=== PATIENT | female | born 1955 ===

== ENCOUNTER 2018-07-08 05:41 | Day surgery (SDC) | payer BC ==
--- NOTE | 2018-07-04 10:31 | Pre-op HX & Phy Repo 2 SIG ---
DATE OF ADMISSION: 07/08/2018 DATE OF SURGERY: 07/08/2018. PREOPERATIVE DIAGNOSIS: Macular hole, left eye. BRIEF NOTE: This is the first [place] admission for this patient is a very nice 62-year-old lady, who complained of blurred vision in both eyes over the last month or so. On examination, she was found to have significant vitreomacular traction on the right eye, but in addition was found to have a full-thickness macular hole on the left. Her past ocular history is negative for surgery or laser. She has only been treated in the past for dry eyes. She did have refractive laser surgery in both eyes in 1998. MEDICAL HISTORY: Remarkable for depression. She has no diabetes or hypertension. She is a former smoker. CURRENT MEDICATIONS: Include Rexulti 1 mg, Venlafaxine 225 mg, and lorazepam 0.5 mg. ALLERGIES: She has no known allergies. PHYSICAL EXAMINATION: Best vision at the time of the visit was 20/30 -1 in the right eye, 20/50 in the left with pressures of 13 and 12. The anterior segments were quiet. Fundus examination showed an impending macular hole with vitreomacular traction, centrally on the right. The periphery was without retinal tear. The left fundus showed partially resolved vitreomacular traction, but with presence of a full-thickness hole centrally as well as retinal thickening. Early nuclear cataract are seen bilaterally. General physical examination was done by the patient's nuclear medicine tech, Dr. Miguel Larkin. ASSESSMENT: Macular hole, left eye. PLAN: The plan is to perform a pars plana vitrectomy with ICG-assisted membrane peeling, possible endolaser, and gas-fluid exchange on the left. The risks and benefits of surgery were gone over with the patient with potential for infection, development of a cataract, hemorrhage, remote possibility of loss of the eye, the risk of anesthesia was discussed. The patient understands and consents to the surgery, which will be performed on Sunday. Keven Velazquez M.D. DR: ELIAS JOB#: [id number] CC:
[2018-07-08] VITALS (9 sets, daily range): BP systolic 110–129; BP diastolic 54–82
[~2018-07-08] VITALS: Ht 157.5 cm; Wt 77.1 kg
[2018-07-08] MEDS ORDERED: Pred Forte 1% Opth Susp 1ml LEFT EYE SCH (06:00)
[2018-07-08] MEDS: Cyclopentolate 1% Opth Sol 2ml LEFT EYE SCH ×3 (06:26→06:51)
[2018-07-08] MEDS: Flurbiprofen 0.03% Opth Sol 2.5ml LEFT EYE SCH ×3 (06:27→06:51)
[2018-07-08] MEDS: Vigamox Opth Soln 3ml LEFT EYE SCH ×3 (06:27→06:51)
[2018-07-08] MEDS: Phenylephrine 2.5% Op 2ml Soln LEFT EYE SCH ×3 (06:27→06:51)
[2018-07-08] MEDS ORDERED: VENLAFAXINE HC100 MG ORAL (06:48)
[2018-07-08] MEDS ORDERED: REXULTI1 MG PO (06:48)
[2018-07-08] MEDS ORDERED: LORAZEPAM0.5 MG ORAL (06:48)
[2018-07-08] MEDS ORDERED: Maxitrol Opth Oint 3.5gm ONE (06:59)
[2018-07-08] MEDS ORDERED: Kenalog-40 1ml Vial ONE (06:59)
[2018-07-08] MEDS ORDERED: Lidocaine 2% MPF 5ml Vial INJ ONE (06:59)
[2018-07-08] MEDS ORDERED: Pred Forte 1% Opth Susp 1ml ONE (06:59)
[2018-07-08] MEDS ORDERED: Dexamethasone 20mg/5ml ONE (07:00)
[2018-07-08] MEDS ORDERED: Povidone-Iodine 5% opth solution ONE (07:00)
[2018-07-08] MEDS ORDERED: BSS 15ml BTL ONE (07:00)
[2018-07-08] MEDS ORDERED: BSS 500ml btl ONE ×2 (07:00→08:04)
[2018-07-08] MEDS ORDERED: Kenalog-10 5ml Inj ONE (07:00)
[2018-07-08] MEDS ORDERED: Tetracaine 0.5% Opth 4ml Soln ONE (07:00)
[2018-07-08] MEDS ORDERED: Bupivacaine 0.75% 30ml vial INJ ONE (07:00)
[2018-07-08] MEDS ORDERED: Sodium Hyaluronate 10 mg/ml 0.85ml ONE (07:01)
[2018-07-08] MEDS ORDERED: EPINEPHrine 1mg/1ml Amp ONE ×2 (07:01→08:05)
[2018-07-08] MEDS ORDERED: Midazolam 2mg/2ml Inj ONE (07:19)
[2018-07-08] MEDS ORDERED: Propofol 200mg/20ml IV ONE (07:19)
[2018-07-08] MEDS ORDERED: Lidocaine 1% MPF 10mg/ml 5ml ONE (07:19)
[2018-07-08] MEDS ORDERED: LR 1000ml 1,000 ML IVLG SCH (07:24)
[2018-07-08] MEDS ORDERED: Meperidine 50mg/ml Inj(FOR RIGORS ONLY) IVP PRN (07:30)
[2018-07-08] MEDS ORDERED: LORazepam Inj 2mg/ml 1ml IV PRN (07:30)
[2018-07-08] MEDS ORDERED: NS Irrig 1000ml ONE (07:30)
[2018-07-08] MEDS ORDERED: HYDROcodone/Acetamin 5/325 tab ORAL PRN (07:30)
[2018-07-08] MEDS ORDERED: Metoclopramide 10mg/2ml Inj IVP PRN (07:30)
[2018-07-08] MEDS ORDERED: DiphenhydrAMINE 50mg/ml Inj IVP PRN (07:30)
[2018-07-08] MEDS ORDERED: Atropine Sulfate 0.4mg/ml inj IVP PRN (07:30)
[2018-07-08] MEDS ORDERED: LR 1000ml ONE (07:30)
[2018-07-08] MEDS ORDERED: oxyCODONE HCL/Acetaminophen 5/325mg ORAL PRN (07:30)
[2018-07-08] MEDS ORDERED: Midazolam 2mg/2ml Inj IVP PRN (07:30)
[2018-07-08] MEDS ORDERED: HYDROcodone/Acetamin 7.5/325 tab ORAL PRN (07:30)
[2018-07-08] MEDS ORDERED: Ketorolac 30mg Inj IV PRN ×2 (07:30)
[2018-07-08] MEDS ORDERED: Hydromorphone 0.5mg/0.5ml inj IVP PRN (07:30)
[2018-07-08] MEDS ORDERED: fentaNYL 100 mcg/2 mL IV PRN (07:30)
[2018-07-08] MEDS ORDERED: Sterile Water Irrig 1000ml IRRIG ONE (07:30)
--- NOTE | 2018-07-08 07:32 | Anethesia Preoperative Eval ---
Anesthesia Pre-op PMH/ROS General Date of Evaluation: Jul 08, 2018 Time of Evaluation: 07:24 Anesthesiologist: Catrina ASA Score: ASA 2 Mallampati Score Class I : Soft palate, uvula, fauces, pillars visible Class II: Soft palate, uvula, fauces visible Class III: Soft palate, base of uvula visible Class IV: Only hard plate visible Mallampati Classification: Class II Surgeon: Marcus Diagnosis: Macular Hole OS Surgical Procedure: Vitrectomy OS Anesthesia History: none Family History: no anesthesia problems Allergies: Coded Allergies: No Known Allergies (Unverified , 07/04/18) Medications: see eMAR Patient NPO?: Yes Past Medical History Gastrointestinal/Genitourinary: Reports: GERD Neurologic/Psychiatric: Reports: depression/anxiety Other: obesity - BMI 32 PSxH Narrative: R Breast BX, R Ankle Screws, PRABHAKAR Anesthesia Pre-op Phys. Exam Physician Exam Last Vital Signs Date Time Temp Pulse Resp B/P (MAP) Pulse Ox O2 Delivery O2 Flow Rate FiO2 07/08/18 06:40 97.3 78 20 114/63 98 Room Air Constitutional: NAD Neurologic: CN 2-12 intact Cardiovascular: RRR Respiratory: CTA Gastrointestinal: S/NT/ND Airway Exam Mallampati Score: Class II MO: full ROM: limited Teeth: missing, intact Anesthesia Pre-op A/P Risk Assessment & Plan Assessment: ASA 2 Plan: GA Status Change Before Surgery: Sanjiv Rosen MD Jul 08, 2018 07:32
--- NOTE | 2018-07-08 07:33 | 48 Hour Post Anesthesia Eval ---
Post Anesthesia Evaluation Procedure: Vitrectomy OS Date of Evaluation: Jul 08, 2018 Time of Evaluation: 11:54 Blood Pressure Systolic: 113 0: 71 Pulse Rate: 75 Respiratory Rate: 18 Temperature (Fahrenheit): 98.1 O2 Sat by Pulse Oximetry: 100 Airway: patent Nausea: No Vomiting: No Pain Intensity: 1 Hydration Status: adequate Cardiopulmonary Status: Stable Mental Status/LOC: patient returned to baseline Follow-up Care/Observations: 0 Post-Anesthesia Complications: 0 Follow-up care needed: ready to discharge Sanjiv Fritz MD Jul 08, 2018 07:33
--- NOTE | 2018-07-08 07:33 | Immediate Post-Op Evaluation ---
Immediate Post-Op Evalulation Immediate Post-Op Evalulation Procedure: Vitrectomy OS Date of Evaluation: Jul 08, 2018 Time of Evaluation: 08:50 IV Fluids: 500 LR Blood Products: 0 Estimated Blood Loss: 1 Urinary Output: 0 Blood Pressure Systolic: 129 Blood Pressure Diastolic: 82 Pulse Rate: 80 Respiratory Rate: 16 O2 Sat by Pulse Oximetry: 100 Temperature (Fahrenheit): 97.8 Pain Score (1-10): 1 Nausea: No Vomiting: No Complications 0 Patient Status: awake, patent, none Hydration Status: adequate Sanjiv Fritz MD Jul 08, 2018 07:33
--- NOTE | 2018-07-08 07:33 | Pre-Procedure Note/Attestation ---
Pre-Procedure Note/Attestation Complete Prior to Procedure Planned Procedure: left Procedure Narrative: PPV, membrane peel, gas fluid exchange OS Indications for Procedure Pre-Operative Diagnosis: Macular hole with ERM OS Attestation I attest that I discussed the nature of the procedure; its benefits; risks and complications; and alternatives (and the risks and benefits of such alternatives ), prior to the procedure, with the patient (or the patient's legal associate sales representative). I attest that, if there was a reasonable possibility of needing a blood transfusion, the patient (or the patient's legal associate sales representative) was given the [facility] standardized written summary, pursuant to the Wyatt Lesa Blood Safety Act ([place] Health and Safety Code # 1645, as amended). I attest that I re-evaluated the patient just prior to the surgery and that there has been no change in the patient's H&P, except as documented below: Keven Velazquez MD Jul 08, 2018 07:33
[2018-07-08] MEDS ORDERED: Indocyanine Green 25mg Inj INJ ONE (07:45)
--- NOTE | 2018-07-08 08:41 | Brief Operative Note ---
Immediate Post Operative Note Operative Note Chief Complaint: Central defect and blurring L eye Pre-op Diagnosis: Macular hole with ERM OS Procedure: PPV, ICG assisted membrane peel, gas-fluid exchange L eye Post-op Diagnosis: same as pre-op Surgeon: hosea Anesthesiologist: brandie Anesthesia: MAC Specimen: none Complications: none Condition: stable Fluids: per anesthesia Estimated Blood Loss: none Drains: none Implant(s) used?: No Keven Velazquez MD Jul 08, 2018 08:41
--- NOTE | 2018-07-09 01:00 | Operative Note - Dictated ---
DATE OF OPERATION: 07/08/2018 NOTE: DISTORTED AUDIO PREOPERATIVE DIAGNOSIS: Macular hole with epiretinal membrane, left eye. POSTOPERATIVE DIAGNOSIS: Macular hole with epiretinal membrane, left eye. PROCEDURES: 1. Pars plana vitrectomy. 2. ICG-assisted membrane peel. 3. Gas-fluid exchange, left eye. SURGEON: Keven Velazquez M.D. ATHLETIC EQUIPMENT MANAGER: None. ANESTHESIA: Local with sedation, Dr. Fritz. JUSTIFICATION FOR SURGERY: This 62-year-old lady noted central visual changes of the left eye and was found to have an epiretinal membrane with a small full-thickness hole. She was admitted for repair . BRIEF NOTE: The patient was brought to the operating room, placed on the OR table in supine position. After a time-out was performed and agreed upon by the staff, an initial monitoring was done by Dr. Fritz. Retrobulbar and Van Lint blocks were given in the standard way. When the blocks taken effect, she was prepped and draped in normal manner. A lid speculum was inserted into the left eye. Using a 23-gauge trocar system, cannulas were placed in all except infranasal quadrant. Infusion was secured inferotemporally. Vitrectomy was begun posterior to the lens implant. A central core vitrectomy was done followed by peripheral vitrectomy leaving a small vitreous skirt. Kenalog was used to aid in visualization of the vitreous. A posterior hyaloid was then engaged adjacent to the optic nerve and elevated . was injected posteriorly. A total of 3 drops were used. . Scleral depression was then performed. No peripheral breaks, tears, or detachments were seen. . Air-fluid exchange was then performed followed by gas-gas exchange of 24% SF6. The cannulas were removed and . There were no complications. Keven Velazquez M.D. DR: [place] JOB#: [id number] CC:
== END 2018-07-08 07:50 | disposition home or self-care (01) ==
LOC: SUR 05:41
DX: H35.342 Macular cyst, hole, or pseudohole, left eye (principal); F32.9 Major depressive disorder, single episode, unspecified; Z87.891 Personal history of nicotine dependence; K21.9 Gastro-esophageal reflux disease without esophagitis; F41.9 Anxiety disorder, unspecified
CPT/HCPCS: 67042; J0171; J1100; J2250; J2704; J3301; J3470; J3490; 94003; 94150